=== PATIENT | female | born 1930 | race Caucasian/White ===

== ENCOUNTER → 2016-10-26 | Outpatient (CLI) | payer OTHER, MEDICARE ==
[~2016-10-26] MED LIST: ASPI81TA28 PO; CALCIUM PO; CHOL1000 PO; LEVO100T7 PO; LEVO75TA5 PO; LISI-725 PO; MAGN400T6 PO; MULT-506 PO; OXYBUTYNIN PO; SIMV20TA2 PO
[2016-10-26 13:31] LABS: BLOOD UREA NITROGEN 31 mg/dl (7-18); BUN/CREATININE RATIO 23.9 (10-20); CALCIUM 9.5 mg/dl (8.5-10.1); CARBON DIOXIDE 28 mmol/L (21-32); CHLORIDE 109 mmol/L (98-107); GLUCOSE 95 mg/dl (70-99); POTASSIUM 4.6 mmol/L (3.5-5.1); SODIUM 143 mmol/L (136-145)
[2016-10-26 13:42] LABS: CHOLESTEROL 181 mg/dl (0-200); CHOLESTEROL/HDL RATIO 2.9; HDL CHOLESTEROL 62 mg/dl; THYROID STIMULATING HORMONE 0.146 uIu/ml (0.300-4.500); TRIGLYCERIDES 98 mg/dl (0-150); VERY LOW DENSITY LIPOPROT CALC 20 mg/dl
== END | disposition home or self-care (01) ==
LOC: C.LABSPEC 12:52
PROVIDERS: ATTEND Internal Medicine
DX: E03.9 Hypothyroidism, unspecified (principal); E78.5 Hyperlipidemia, unspecified; I10 Essential (primary) hypertension

== ENCOUNTER → 2016-11-03 | Outpatient (CLI) | payer OTHER, MEDICARE ==
[2016-11-03 18:58] LABS: ALKALINE PHOSPHATASE 84 U/L (45-117); ALT/SGPT 36 U/L (12-78); AMYLASE 54 U/L (25-115); AST/SGOT 27 U/L (15-37)
== END | disposition home or self-care (01) ==
LOC: C.LABSPEC 14:29
PROVIDERS: ATTEND Internal Medicine
DX: R10.13 Epigastric pain (principal); E34.9 Endocrine disorder, unspecified

== ENCOUNTER → 2016-11-18 | Outpatient (CLI) | payer OTHER, MEDICARE ==
--- NOTE | 2016-11-18 19:47 | DIAGNOSTIC IMAGING REPORT ---
PARATHYROID IMAGING CLINICAL HISTORY: HYPERPARATHYROIDISM TECHNIQUE: Examination is performed following the administration of 22 mCi technetium 99 M Cardiolite. Multi axial SPECT images are acquired. COMPARISON STUDY: None FINDINGS: Normal activity within the salivary glands. Focus of increased activity lower right cervical region. No additional foci of abnormal activity are identified. IMPRESSION: Increased activity lower right soft tissue neck region. Possibility of a parathyroid nodule must be considered. Soft tissue neck ultrasound is suggested. Electronically signed by: Zeke Barnes M.D. 11/18/2016 7:46 PM Dictated Date/Time: 11/18/2016 7:43 PM
== END | disposition home or self-care (01) ==
LOC: C.NUCL 14:57
PROVIDERS: ATTEND Internal Medicine
DX: E21.3 Hyperparathyroidism, unspecified (principal)

== ENCOUNTER → 2016-11-23 | Outpatient (CLI) | payer OTHER, MEDICARE ==
--- NOTE | 2016-11-23 11:34 | DIAGNOSTIC IMAGING REPORT ---
NECK ULTRASOUND CLINICAL HISTORY: Right soft tissue density. Abnormal parathyroid nuclear medicine study. COMPARISON STUDY: Nuclear medicine parathyroid study November 18, 2016. TECHNIQUE: Sonography of the neck was performed. FINDINGS: The thyroid gland is surgically absent. No mass or enlarged lymph node is identified within the neck by sonography. No abnormalities are identified on this study to correspond to the abnormality shown on parathyroid study of November 18, 2016. IMPRESSION: No cervical lesion identified to correspond to the abnormality shown on prior parathyroid study. This does not exclude the possibility of a parathyroid adenoma as these may be occult by sonography. Electronically signed by: Ron Menezes M.D. 11/23/2016 11:33 AM Dictated Date/Time: 11/23/2016 11:30 AM
== END | disposition home or self-care (01) ==
LOC: C.ULTR 10:57
PROVIDERS: ATTEND Internal Medicine
DX: M79.9 Soft tissue disorder, unspecified (principal)

== ENCOUNTER → 2016-12-22 | Outpatient (CLI) | payer OTHER, MEDICARE ==
[2016-12-22 13:24] LABS: ALKALINE PHOSPHATASE 86 U/L (45-117); ALT/SGPT 34 U/L (12-78); AST/SGOT 28 U/L (15-37)
== END | disposition home or self-care (01) ==
LOC: C.LAB1850 11:19
PROVIDERS: ATTEND Physician Assistant
DX: K81.1 Chronic cholecystitis (principal)

== ENCOUNTER → 2016-12-27 | Outpatient (CLI) | payer OTHER, MEDICARE ==
[2016-12-27 14:07] LABS: BLOOD UREA NITROGEN 24 mg/dl (7-18)
== END | disposition home or self-care (01) ==
LOC: C.LAB1850 12:45
PROVIDERS: ATTEND Surgery
DX: G89.18 Other acute postprocedural pain (principal)

== ENCOUNTER → 2016-12-30 | Outpatient (CLI) | payer OTHER, MEDICARE ==
--- NOTE | 2016-12-30 15:19 | DIAGNOSTIC IMAGING REPORT ---
MRCP CLINICAL HISTORY: Epigastric pain. History of prior cholecystectomy. COMPARISON STUDY: Intraoperative cholangiogram dated 04/15/2016 FINDINGS: A breath-hold MRCP was performed. The gallbladder is surgically absent. There is no pancreatic ductal dilatation. The common bile duct is the upper limits of normal in diameter measuring 6 mm. There are 2 distal common bile duct filling defects consistent with calculi. IMPRESSION: 1. Surgically absent gallbladder 2. Common bile duct filling defects, consistent with calculi Electronically signed by: Lucas Jenkins M.D. 12/30/2016 3:17 PM Dictated Date/Time: 12/30/2016 3:14 PM
== END | disposition home or self-care (01) ==
LOC: C.MRI 14:02
PROVIDERS: ATTEND Physician Assistant
DX: G89.18 Other acute postprocedural pain (principal)

== ENCOUNTER 2017-02-02 12:06 | Day surgery (SDC) | payer OTHER, MEDICARE ==
[2017-01-26 13:10] VITALS: BMI 24.0
[~2017-02-02] VITALS: Ht 154.9 cm; Wt 57.7 kg
[~2017-02-02 12:06] MED LIST changes: -CALCIUM PO; -CHOL1000 PO; +CIPROFLOXACIN / D5W 400 MG IV SCH; +FENTANYL CITRATE INJ 50 MCG/1 ML 2 ML VIAL ONE; +INDOMETHACIN 50 MG SUPP PR SCH; +LACTATED RINGER'S 1000ML 1,000 ML IV SCH; -LEVO100T7 PO; +LIDOCAINE HCL 2% 2 ML VIAL (20MG/ML) ONE; -MAGN400T6 PO; +MIDAZOLAM HCL 1 MG/ML 2ML VIAL ONE; -OXYBUTYNIN PO; +PROPOFOL IV EMULSION 10 MG/ML 20 ML VIAL IV ONE
[2017-02-02 12:23] VITALS: BP 125/62; PULSE 65; TEMP 36.7; O2SAT 95; Ht 154.9 cm; Wt 57.7 kg
[2017-02-02 12:36] LABS: HEMATOCRIT 35.7 % (37-47); MEAN CELL VOLUME 91.3 fL (80-100); MEAN CORPUSCULAR HEMOGLOBIN 30.9 pg (25-34); MEAN PLATELET VOLUME 9.8 fL (7.4-10.4); PLATELET COUNT 223 K/uL (130-400); RED BLOOD COUNT 3.91 M/uL (4.2-5.4); WHITE BLOOD COUNT 6.98 K/uL (4.8-10.8)
[2017-02-02 12:42] LABS: MEAN CORPUSCULAR HGB CONC 33.9 g/dl (32-36)
[2017-02-02 12:49] LABS: PROTHROMBIN TIME (PATIENT) 10.9 SECONDS (9.0-12.0)
--- NOTE | 2017-02-02 13:05 | History and Physical ---
History & Physical Date Feb 02, 2017. Chief Complaint CBD stones History of Present Illness The patient is a 86 year old female with complaints of abd pain and CBD stones on MRCP Past Medical/Surgical History GB, Thyroid, appy Additional History Hypertension: Yes Allergies Coded Allergies: No Known Allergies (Unverified , 02/02/17) Home Medications Scheduled Aspirin (Aspirin Ec), 81 MG PO QPM Levothyroxine Sodium (Levothyroxine Sodium), 1 TAB PO QAM Lisinopril (Zestril), 20 MG PO QPM Multivitamin (Multivitamin), 1 TAB PO DAILY Simvastatin (Zocor), 20 MG PO QPM Physical Examination Skin: warm/dry Eyes: normal inspection ENT: normal ENT inspection Neck: + pertinent finding (thyroidectomy scar) Respiratory/Chest: lungs clear Cardiovascular: regular rate, rhythm Abdomen / GI: non tender Extremities: normal inspection Neurologic/Psych: no motor/sensory deficits, alert, oriented x 3 Diagnosis CBD stones Plan of Treatment ERCP with sphincterotomy and stone removal in OR
[2017-02-02] MEDS ORDERED: EpHEDrine SULFATE 50MG/5ML SYR ONE (13:34)
[2017-02-02] MEDS ORDERED: NEOSTIGMINE METHYLSULFATE 5 MG/5 ML SYR ONE (13:34)
[2017-02-02] MEDS ORDERED: GLYCOPYRROLATE INJ 0.2 MG/ML VIAL ONE (13:34)
[2017-02-02] MEDS ORDERED: ROCURONIUM BROMIDE 10 MG/ML 5 ML VIAL ONE (13:34)
--- NOTE | 2017-02-02 13:52 | Discharge Instructions ---
Endoscopy Patient Instructions Date / Procedure(s) Performed Feb 02, 2017. ERCP Allergy Information Coded Allergies: No Known Allergies (Unverified , 02/02/17) Discharge Date / Findings Feb 02, 2017. CBD stones removed Medication Instructions Restart Stopped Medication(s): resume meds except aspirin for 2 weeks Reported Home Medications Medications Dose Route/Sig Max Daily Dose Days Date Category Levothyroxine Sodium 75 Mcg Tab 1 Tab PO QAM 01/26/17 Reported Multivitamin (Multivitamins) Tab 1 Tab PO DAILY 01/26/17 Reported Aspirin Ec (Aspirin) 81 Mg Tab 81 Mg PO QPM 04/13/16 Reported Zocor (Simvastatin) 20 Mg Tab 20 Mg PO QPM 04/13/16 Reported Zestril (Lisinopril) 20 Mg Tab 20 Mg PO QPM 04/13/16 Reported Provider Instructions Activity Restrictions - No exercising or heavy lifting for 24 hours. - Do not drink alcohol the day of the procedure. - Do not drive a car or operate machinery until the day after the procedure. - Do not make any important decisions or sign important papers in 24 hours after the procedure. Following Day: - Return to full activity which may include returning to work/school. Diet Start your diet with liquids and light foods (jello, soup, juice, toast). Then eat your usual diet if not nauseated. Treatment For Common After Affects For mild abdominal pain, bloating, or excessive gas: - Rest - Eat lightly - Lie on right side Follow-Up Information Follow-up with as scheduled Anesthesia Information What You Should Know You have had a procedure that required some medicine to reduce anxiety and discomfort. This treatment is called moderate sedation. After receiving the treatment, you may be sleepy, but you will be able to breathe on your own. The effects of the treatment may last for several hours. Follow these instructions along with Activity/Diet recommendations noted above: * Do NOT do anything where dizziness or clumsiness would be dangerous. * Rest quietly at home today, then you can be up and about tomorrow. * Have a responsible person stay with you the rest of today. * You may have had an I.V. today. If so, you may take the dressing off later today. Recommendations Call your doctor if: * Trouble breathing * Continuous vomiting for more than 24 hours * Temperature above 101 degrees * Severe abdominal pain or bloating * Pain not relieved by pain medicine ordered * There is increased drainage or redness from any incision * A large amount of rectal bleeding greater than 2-3 tablespoons. (If you had a polyp/s removed or have hemorrhoids, a small amount of blood - from the rectum is to be expected.) * You have any unanswered questions or concerns. IN THE EVENT OF A SERIOUS EMERGENCY, GO TO THE NEAREST EMERGENCY ROOM Your discharge instructions were prepared by provider John James. Patient Instructions Signature Page Daron Irizarry Patient (or Guardian) Signature/Date: I have read and understand the instructions given to me by my caregivers. Caregiver/RN/Doctor Signature/Date: The above-named patient and/or guardian has received patient instructions on this date. + Original Patient Signature Page (only) stays with chart. Please make copy for patient.
--- NOTE | 2017-02-02 13:59 | GI REPORT ---
Procedure Date: 02/02/2017 1:26 PM Procedure: ERCP Indications: Bile duct stone(s) Medicines: General Anesthesia Complications: No immediate complications. Estimated Blood Loss: Estimated blood loss was minimal. Procedure: Pre-Anesthesia Assessment: - Prior to the procedure, a History and Physical was performed, and patient medications, allergies and sensitivities were reviewed. The patient's tolerance of previous anesthesia was reviewed. - The risks and benefits of the procedure and the sedation options and risks were discussed with the patient. All questions were answered and informed consent was obtained. - Prior to the procedure, a History and Physical was performed, and patient medications, allergies and sensitivities were reviewed. The patient's tolerance of previous anesthesia was reviewed. - The risks and benefits of the procedure and the sedation options and risks were discussed with the patient. All questions were answered and informed consent was obtained. After obtaining informed consent, the scope was passed under direct vision. Throughout the procedure, the patient's blood pressure, pulse, and oxygen saturations were monitored continuously. The scope was introduced through the mouth, and advanced to the duodenum and used to inject contrast into the bile duct. The ERCP was accomplished without difficulty. The patient tolerated the procedure well. Findings: The major papilla was normal. A wire was passed into the biliary tree. The short-nosed traction autotome was passed over the guidewire and the bile duct was then deeply cannulated. Contrast was injected. I personally interpreted the bile duct images. Ductal flow of contrast was adequate. The lower third of the main bile duct contained filling defect(s) thought to be a stone. A 3 mm biliary sphincterotomy was made with a monofilament Autotome sphincterotome using ERBE electrocautery. There was no post-sphincterotomy bleeding. The lower third of the main bile duct contained two stones, the largest of which was 4 mm in diameter. To discover objects, the biliary tree was swept with an 8.5 mm balloon starting at the middle third of the main bile duct. Two stones were removed. No stones remained. Impression: - The major papilla appeared normal. - A filling defect consistent with a stone was seen on the cholangiogram. - A sphincterotomy was performed. - The biliary tree was swept. - Choledocholithiasis was found. Complete removal was accomplished by biliary sphincterotomy and balloon extraction. Recommendation: - Avoid aspirin and nonsteroidal anti-inflammatory medicines for 2 weeks. - Return to primary care physician PRN. John James M.D. John James MD 02/02/2017 1:59:40 PM This report has been signed electronically. Note Initiated On: 02/02/2017 1:26 PM I attest to the content of the Intraoperative Record and orders documented therein, exceptions below
--- NOTE | 2017-02-02 14:28 | DIAGNOSTIC IMAGING REPORT ---
ERCP BILIARY DUCTAL CLINICAL HISTORY: ERCP COMPARISON STUDY: MRCP December 30, 2016. FLUOROSCOPY TIME: 122.5 seconds. FINDINGS: 11 fluoroscopic images were obtained during ERCP. These images demonstrate cannulation of the common bile duct. Filling defects on the initial images suggest choledocholithiasis. Subsequent images demonstrate a balloon sweep through the common bile duct. IMPRESSION: Fluoroscopic images from ERCP, as described above. Electronically signed by: Ron Menezes M.D. 02/02/2017 2:27 PM Dictated Date/Time: 02/02/2017 2:24 PM
--- NOTE | 2017-02-02 14:34 | Anesthesiology Progress Note ---
Anesthesia Post Op Note Date & Time Feb 02, 2017 at 14:34 Vital Signs Pain Intensity: 0 Vital Signs Past 12 Hours Date Time Temp Pulse Resp B/P (MAP) Pulse Ox O2 Delivery O2 Flow Rate FiO2 02/02/17 14:30 56 16 117/62 98 Room Air 02/02/17 14:20 60 16 117/66 95 Room Air 02/02/17 14:10 62 16 123/64 100 Mask 10 02/02/17 14:02 36.1 70 16 125/69 100 Mask 10 02/02/17 12:23 36.7 65 18 125/62 (83) 95 Room Air Notes Mental Status: alert / awake / arousable, participated in evaluation Pt Amnestic to Procedure: Yes Nausea / Vomiting: adequately controlled Pain: adequately controlled Airway Patency, RR, SpO2: stable & adequate BP & HR: stable & adequate Hydration State: stable & adequate Anesthetic Complications: no major complications apparent
[2017-02-02 14:45] VITALS: BP 105/49; PULSE 56; TEMP 36.2; O2SAT 96
[2017-02-02] MEDS ORDERED: ATROPINE SULFATE 0.1 MG/ML 5ML SYR IV PRN (14:45)
[2017-02-02] MEDS ORDERED: ONDANSETRON INJ 2 MG/ML 2 ML VIAL IV PRN (14:45)
[2017-02-02] MEDS ORDERED: FENTANYL CITRATE INJ 50 MCG/1 ML 2 ML VIAL IV PRN (14:45)
[2017-02-02 15:15] VITALS: BP 112/57; PULSE 56; TEMP 36.2; O2SAT 98
== END 2017-02-02 15:45 | disposition home or self-care (01) ==
LOC: C.ACU 12:06
PROVIDERS: ATTEND Internal Medicine Gastroenterology
DX: K80.50 Calculus of bile duct without cholangitis or cholecystitis without obstruction (principal); I10 Essential (primary) hypertension; E78.5 Hyperlipidemia, unspecified; M19.90 Unspecified osteoarthritis, unspecified site; E89.0 Postprocedural hypothyroidism; Z90.49 Acquired absence of other specified parts of digestive tract; Z90.89 Acquired absence of other organs; Z79.82 Long term (current) use of aspirin; K21.9 Gastro-esophageal reflux disease without esophagitis; Z85.850 Personal history of malignant neoplasm of thyroid

== ENCOUNTER → 2017-04-01 | Outpatient (CLI) | payer OTHER, MEDICARE ==
[~2017-04-01] MED LIST changes: -CIPROFLOXACIN / D5W 400 MG IV SCH; -FENTANYL CITRATE INJ 50 MCG/1 ML 2 ML VIAL ONE; -INDOMETHACIN 50 MG SUPP PR SCH; -LACTATED RINGER'S 1000ML 1,000 ML IV SCH; -LIDOCAINE HCL 2% 2 ML VIAL (20MG/ML) ONE; -MIDAZOLAM HCL 1 MG/ML 2ML VIAL ONE; -PROPOFOL IV EMULSION 10 MG/ML 20 ML VIAL IV ONE
[2017-04-01 13:11] LABS: BASO % 0.6 %; BASO ABS # 0.03 K/uL (0-0.2); COMPLETE YES; EOS % 3.2 %; HEMATOCRIT 35.5 % (37-47); LYMPH % 29.1 %; LYMPH ABS # 1.44 K/uL (1.2-3.4); MEAN CELL VOLUME 93.7 fL (80-100); MEAN CORPUSCULAR HEMOGLOBIN 31.4 pg (25-34); MEAN CORPUSCULAR HGB CONC 33.5 g/dl (32-36); MEAN PLATELET VOLUME 10.4 fL (7.4-10.4); MONO % 11.1 %; PLATELET COUNT 227 K/uL (130-400); RED BLOOD COUNT 3.79 M/uL (4.2-5.4); WHITE BLOOD COUNT 4.94 K/uL (4.8-10.8)
[2017-04-01 13:37] LABS: ALB/GLOB RATIO 1.2 (0.9-2); ALKALINE PHOSPHATASE 77 U/L (45-117); ALT/SGPT 29 U/L (12-78); AST/SGOT 22 U/L (15-37); BLOOD UREA NITROGEN 22 mg/dl (7-18); BUN/CREATININE RATIO 22.7 (10-20); CALCIUM 9.2 mg/dl (8.5-10.1); CARBON DIOXIDE 26 mmol/L (21-32); CHLORIDE 110 mmol/L (98-107); CHOLESTEROL 164 mg/dl (0-200); CHOLESTEROL/HDL RATIO 2.3; CREATININE 0.97 mg/dl (0.60-1.20); GLUCOSE 92 mg/dl (70-99); HDL CHOLESTEROL 71 mg/dl; POTASSIUM 4.5 mmol/L (3.5-5.1); SODIUM 143 mmol/L (136-145)
[2017-04-01 13:39] LABS: LDL CHOLESTEROL CALCULATED 77 mg/dl; TRIGLYCERIDES 80 mg/dl (0-150); VERY LOW DENSITY LIPOPROT CALC 16 mg/dl
== END | disposition home or self-care (01) ==
LOC: C.LABSPEC 12:33
PROVIDERS: ATTEND Internal Medicine
DX: E78.5 Hyperlipidemia, unspecified (principal); I10 Essential (primary) hypertension; E03.9 Hypothyroidism, unspecified

== ENCOUNTER → 2017-04-04 | Outpatient (CLI) | payer OTHER, MEDICARE ==
--- NOTE | 2017-04-04 16:08 | MAMMOGRAPHY REPORT ---
BILATERAL DIGITAL SCREENING MAMMOGRAM WITH CAD: 04/04/2017 CLINICAL HISTORY: Routine screening. TECHNIQUE: Bilateral CC and MLO views were obtained. Current study was also evaluated with a Compute r Aided Detection (CAD) system. COMPARISON: Comparison is made to exams dated: 04/02/2016 mammogram, 04/01/2015 mammogram, 03/26/2014 ma mmogram, 04/05/2013 mammogram, 03/31/2012 mammogram, and 03/17/2011 mammogram - [facility] nter. BREAST COMPOSITION: There are scattered areas of fibroglandular density in both breasts. FINDINGS: There is minimal vascular calcification in the breasts. Stable benign-appearing left breas t coarse calcifications and stable punctate microcalcifications in the anterior right breast. No new suspicious mass, architectural distortion or cluster of microcalcifications is seen. IMPRESSION: ACR BI-RADS CATEGORY 1: NEGATIVE There is no mammographic evidence of malignancy. A 1 year screening mammogram is recommended. The pa tient will receive written notification of the results. Approximately 10% of breast cancers are not detected with mammography. A negative mammographic report should not delay biopsy if a clinically suggestive mass is present. Kathy Neff M.D. ay/:04/04/2017 14:07:28 Gym Manager: Andrei FU(R)(M), [facility] letter sent: Normal 1/2 BI-RADS Code: ACR BI-RADS Category 1: Negative
== END | disposition home or self-care (01) ==
LOC: C.MAMM 13:03
PROVIDERS: ATTEND Internal Medicine
DX: Z12.31 Encounter for screening mammogram for malignant neoplasm of breast (principal)

== ENCOUNTER → 2017-04-10 | Outpatient (CLI) | payer OTHER, MEDICARE | END | disposition home or self-care (01) | LOC: C.LABSPEC 14:40 | PROVIDERS: ATTEND Internal Medicine | DX: Z12.11 Encounter for screening for malignant neoplasm of colon (principal) ==

== ENCOUNTER → 2017-10-28 | Outpatient (CLI) | payer OTHER, MEDICARE ==
[2017-10-28 18:35] LABS: BASO % 0.5 %; BASO ABS # 0.03 K/uL (0-0.2); EOS % 6.1 %; EOS ABS # 0.39 K/uL (0-0.5); HEMATOCRIT 35.7 % (37-47); HEMOGLOBIN 11.8 g/dL (12.0-16.0); IG# 0.01 K/uL (0.00-0.02); LYMPH % 25.2 %; LYMPH ABS # 1.62 K/uL (1.2-3.4); MEAN CELL VOLUME 96.2 fL (80-100); MEAN CORPUSCULAR HEMOGLOBIN 31.8 pg (25-34); MEAN CORPUSCULAR HGB CONC 33.1 g/dl (32-36); MEAN PLATELET VOLUME 10.5 fL (7.4-10.4); MONO ABS # 0.58 K/uL (0.11-0.59); NEUT ABS # 3.79 K/uL (1.4-6.5); PLATELET COUNT 216 K/uL (130-400); RED CELL DISTRIBUTION WIDTH CV 13.5 % (11.5-14.5); RED CELL DISTRIBUTION WIDTH SD 46.8 fL (36.4-46.3); WHITE BLOOD COUNT 6.42 K/uL (4.8-10.8)
[2017-10-28 18:41] LABS: ALBUMIN 3.6 gm/dl (3.4-5.0); ALT/SGPT 26 U/L (12-78); BLOOD UREA NITROGEN 19 mg/dl (7-18); CALCIUM 9.5 mg/dl (8.5-10.1); CARBON DIOXIDE 27 mmol/L (21-32); CHOLESTEROL 168 mg/dl (0-200); CREATININE 1.13 mg/dl (0.60-1.20); GLUCOSE 80 mg/dl (70-99); POTASSIUM 4.4 mmol/L (3.5-5.1); SODIUM 140 mmol/L (136-145)
[2017-10-28 18:50] LABS: ALKALINE PHOSPHATASE 75 U/L (45-117); AST/SGOT 28 U/L (15-37); LDL CHOLESTEROL CALCULATED 84 mg/dl; TOTAL PROTEIN 6.6 gm/dl (6.4-8.2)
== END | disposition home or self-care (01) ==
LOC: C.LABSPEC 16:43
PROVIDERS: ATTEND Internal Medicine
DX: I10 Essential (primary) hypertension (principal); E03.9 Hypothyroidism, unspecified; J20.9 Acute bronchitis, unspecified; E78.5 Hyperlipidemia, unspecified

== ENCOUNTER → 2017-10-28 | Outpatient (CLI) | payer OTHER, MEDICARE ==
--- NOTE | 2017-10-28 10:35 | DIAGNOSTIC IMAGING REPORT ---
TWO VIEW CHEST CLINICAL HISTORY: Bronchitis. FINDINGS: PA and lateral chest radiographs are compared to study dated 04/13/2016. The cardiomediastinal silhouette is unremarkable. A calcified granuloma is seen in the right upper lobe. The lungs and pleural spaces are otherwise clear. There is no pneumothorax. The skeletal structures are osteopenic. Mild degenerative change is noted throughout the thoracic spine. Cholecystectomy clips are identified in the right upper quadrant. IMPRESSION: No active disease in the chest. Electronically signed by: Miguel Flores M.D. 10/28/2017 10:33 AM Dictated Date/Time: 10/28/2017 10:32 AM
== END | disposition home or self-care (01) ==
LOC: C.RAD 10:01
PROVIDERS: ATTEND Internal Medicine
DX: J40 Bronchitis, not specified as acute or chronic (principal)